=== PATIENT | female | born 1990 | race American Indian/Alaskan Native ===

== ENCOUNTER 2018-03-12 17:17 | Outpatient (CLI) | payer OTHER, MEDICAID ==
[2018-03-14 06:20] VITALS: BP 142/77
== END 2018-03-12 20:00 | disposition home or self-care (01) ==
LOC: TRG 17:17
PROVIDERS: ATTEND Obstetrics & Gynecology
DX: O47.1 False labor at or after 37 completed weeks of gestation (principal); O99.213 Obesity complicating pregnancy, third trimester; E66.01 Morbid (severe) obesity due to excess calories; Z3A.39 39 weeks gestation of pregnancy
CPT/HCPCS: 59025

== ENCOUNTER 2018-03-13 08:13 | Inpatient (IN) | payer OTHER, MEDICAID ==
[2018-03-13] MEDS ORDERED: BRETHINE IVP PRN (09:46)
[2018-03-13] MEDS ORDERED: PHENERGAN PO PRN (09:46)
[2018-03-13] MEDS ORDERED: BRETHINE SUB-Q PRN (09:46)
--- NOTE | 2018-03-13 09:54 | History and Physical Report ---
History of Present Illness Date of examination: 03/13/18 Date of admission: 03/13/18 08:13 Chief complaint: SROM clear fluid @ 0630 History of present illness: Pt is a 27yo BF EDC 03/17/18; EGA 39 3/7 weeks presents to L&D complaining of SROM clear fluid @ 0630 followed by irregular contractions. She received care at [facility] since 12 weeks and co-managed by [facility] for Morbid Obesity. records are available and GBS is Positive. Past History Past Medical History: other (Morbid Obesity) Past Surgical History: no surgical history [place] History: abnormal PAP smear, chlamydia, gonorrhea Family/Genetic History: diabetes, hypertension, cancer Social history: no significant social history, single - Obstetrical History Expected Date of Delivery: 03/17/18 Actual Gestation: 39 Week(s) 3 Day(s) : 2 Medications and Allergies Allergies Allergy/AdvReac Type Severity Reaction Status Date / Time No Known Allergies Allergy Verified 03/13/18 09:58 Home Medications Medication Instructions Recorded Confirmed Last Taken Type Ferrous Sulfate [Feosol 325 MG tab] 2 tab PO BID 03/12/18 03/12/18 1 Day Ago History ~03/11/18 Review of Systems All systems: negative - Vital Signs Vital signs: Vital Signs Pulse BP 81 130/58 03/13/18 08:47 03/13/18 08:47 Temp Pulse Resp BP Pulse Ox 81 130/58 03/13/18 08:47 03/13/18 08:47 - Physical Exam Breasts: Positive: deferred Cardiovascular: Regular rate Lungs: Positive: Clear to auscultation Abdomen: Positive: normal appearance Genitourinary (Female): Positive: normal external genitalia Uterus: Positive: enlarged Extremities: Positive: normal - Obstetrical FHR: category 1 Uterine Contraction Monitor Mode: External Cervical Dilatation: 2 (per nurse) Cervical Effacement Percentage: 50 (per nurse) station: -3 Uterine Contraction Pattern: Irregular Uterine Tone Measurement Phase: Contraction Uterine Contraction Intensity: Mild Results Result Diagrams: 03/13/18 10:19 All other labs normal. Assessment and Plan - Patient Problems (1) 39 weeks gestation of Onset Date: 03/13/18 Current Visit: Yes Status: Acute Plan to address problem: A: IUP @ 39 3/7 weeks in labor MO +GBS P: Admit to L&D for pitocin augmentation of labor IV Ampicillin (2) Morbid (severe) obesity due to excess calories Onset Date: 03/13/18 Current Visit: Yes Status: Acute (3) GBS (group B streptococcus) infection Onset Date: 03/13/18 Current Visit: Yes Status: Acute
[2018-03-13] MEDS ORDERED: POLYCILLIN/NS 2 GM/100 ML 2 GM/100 ML BAG IV NR (10:00)
[2018-03-13] MEDS ORDERED: PITOCin/NS 20 UNIT/1000ML DRIP 20 UNITS/1,000 ML BAG IV SCH (10:00)
[2018-03-13] MEDS ORDERED: SUBLIMAZE IV PRN (10:00)
[2018-03-13] MEDS ORDERED: ZOFRAN IV PRN (10:00)
[2018-03-13] MEDS ORDERED: MINERAL OIL PO PRN (10:00)
[2018-03-13] MEDS ORDERED: XYLOCAINE 2% INFILTRATI NR (10:00)
[2018-03-13] MEDS: LACTATED RINGERS 1,000 ML IV SCH ×2 (10:15→18:21)
[2018-03-13 11:06] LABS: Hemoglobin 9.9 gm/dl (10.1-14.3); Mean Corpuscular HGB Conc 32 % (30-34); Mean Corpuscular Volume 76 fl (79-97); Platelet Count 139 K/mm3 (140-440); Red Blood Count 4.09 M/mm3 (3.65-5.03); Red Cell Distribution Width 17.4 % (13.2-15.2)
[2018-03-13 11:13] LABS: Mean Corpuscular Hemoglobin 24 pg (28-32)
[2018-03-13] MEDS ORDERED: PITOCin/NS 30 UNIT/500ML 30 UNITS/500 ML BAG IV SCH (12:00)
[2018-03-13] MEDS: PITOCin/NS 30 UNIT/500ML 30 UNITS/500 ML BAG IV SCH ×2 (12:34→18:21)
[2018-03-13] MEDS: AMPICILLIN/NS 1 GM/50 ML 1 GM/50 ML BAG IV SCH ×3 (14:19→23:34)
[2018-03-13] MEDS: STADOL IV PRN ×2 (18:14→20:32)
[2018-03-13] MEDS ORDERED: NUBAIN IV PRN (22:40)
[2018-03-13] MEDS ORDERED: BENADRYL IV PRN (22:40)
[2018-03-13] MEDS ORDERED: fentaNYL-BUPIV 2 MCG/ML-0.125% 200 MCG/100 ML BAG EPIDURAL SCH (23:00)
[2018-03-14] MEDS: LACTATED RINGERS 1,000 ML IV SCH (00:12)
[2018-03-14] MEDS ORDERED: XYLOCAINE 2%/ EPI 1:200,000 INFILTRATI ONE (02:09)
[2018-03-14] MEDS: AMPICILLIN/NS 1 GM/50 ML 1 GM/50 ML BAG IV SCH (02:31)
[2018-03-14] MEDS: STADOL IV PRN (02:42)
[2018-03-14] MEDS ORDERED: METHERGINE IM ONE (03:44)
--- NOTE | 2018-03-14 03:49 | Procedure Note ---
OB Delivery Note - Delivery Date of Delivery: 03/14/18 Surgeon: DAVE GENAO Estimated blood loss: 300cc - Vaginal Delivery presentation: vertex Delivery position: OP Intrapartum events: none Delivery induction: oxytocin Delivery augmentation: rupture of membranes, pitocin Delivery monitor: internal FHT, internal uterine Route of delivery: Delivery placenta: spontaneous Delivery cord: 3 umbilical vessels Episiotomy: none Delivery laceration: none Anesthesia: epidural Delivery comments: Infant delivered OA and placed on Mom's chest for [id number] bonding and delayed cord clamping, cut by Dad - A at 1 minute: 8 at 5 minutes: 9 Gender: Female (3048gms)
[2018-03-14] MEDS ORDERED: ZOFRAN IV PRN (03:52)
[2018-03-14] MEDS ORDERED: TYLENOL PO PRN (03:52)
[2018-03-14] MEDS ORDERED: NORCO 5/325 PO PRN (03:52)
[2018-03-14] MEDS ORDERED: PHENERGAN PO PRN (03:52)
[2018-03-14] MEDS ORDERED: PHENERGAN PR PRN (03:52)
[2018-03-14] MEDS ORDERED: TUCKS PAD TP PRN (03:52)
[2018-03-14] MEDS ORDERED: DULCOLAX PR PRN (03:52)
[2018-03-14] MEDS ORDERED: BENADRYL PO PRN (03:52)
[2018-03-14] MEDS ORDERED: MILK OF MAGNESIA PO PRN (03:52)
[2018-03-14] MEDS ORDERED: LANSINOH TP PRN (03:52)
[2018-03-14] MEDS ORDERED: SODIUM CHLORIDE FLUSH SYRINGE 10 ML IV NR (04:00)
[2018-03-14] MEDS ORDERED: PITOCin/NS 20 UNIT/1000ML DRIP 20 UNITS/1,000 ML BAG IV SCH (04:00)
[2018-03-14] MEDS ORDERED: MOTRIN PO SCH (06:00)
[2018-03-14] MEDS ORDERED: PRENATAL VITAMIN PO SCH (10:00)
[2018-03-14] MEDS: FEOSOL PO SCH ×2 (10:42→21:25)
[2018-03-14] MEDS: COLACE PO SCH ×2 (10:42→21:25)
[2018-03-14 14:56] LABS: Hematocrit 29.9 % (30.3-42.9); Hemoglobin 9.8 gm/dl (10.1-14.3)
[2018-03-15] MEDS ORDERED: BOOSTRIX IM ONE (06:00)
[2018-03-15] MEDS ORDERED: M-M-R II VACCINE SUB-Q ONE (06:00)
--- NOTE | 2018-03-15 08:50 | Progress Note ---
Assessment and Plan - Patient Problems (1) 39 weeks gestation of Onset Date: 03/13/18 Current Visit: Yes Status: Resolved (2) Morbid (severe) obesity due to excess calories Onset Date: 03/13/18 Current Visit: Yes Status: Chronic (3) GBS (group B streptococcus) infection Onset Date: 03/13/18 Current Visit: Yes Status: Resolved (4) (normal spontaneous vaginal delivery) Onset Date: 03/15/18 Current Visit: Yes Status: Resolved Plan to address problem: A: S/P - PPD #1 Doing well Asymptomatic anemia - stable P: May go home today. Subjective - Subjective Date of service: 03/15/18 Principal diagnosis: s/p - PPD #1 Interval history: Pt is feeling well without complaints. Bleeding improved. Patient reports: appetite normal, voiding normally, pain well controlled, flatus , ambulating normally, no dizzy ambulation, no nauseated : doing well, bottle feeding Objective - Vital Signs Latest vital signs: Vital Signs Temp Pulse Resp BP 03/15/18 00:00 16 03/14/18 23:30 98.7 F 66 18 103/74 03/14/18 19:30 98.6 F 74 18 101/69 03/14/18 15:31 98.9 F 98 H 18 149/79 03/14/18 08:58 97.8 F 91 H 18 143/63 - Exam Breasts: Present: deferred Cardiovascular: Present: Regular rate Lungs: Present: Clear to auscultation Abdomen: Present: normal appearance, soft Uterus: Present: normal, firm, fundal height below umbilicus Extremities: Present: normal - Labs Labs: Abnormal lab results 03/14/18 Range/Units 14:22 Hgb 9.8 L (10.1-14.3) gm/dl Hct 29.9 L (30.3-42.9) % Laboratory Tests 03/13/18 03/13/18 03/13/18 10:19 10:19 10:19 WBC 8.4 RBC 4.09 Hgb 9.9 L Hct 31.0 MCV 76 L MCH 24 L MCHC 32 RDW 17.4 H Plt Count 139 L RPR Nonreactive Blood Type B POSITIVE Antibody Screen Negative 03/14/18 14:22 WBC RBC Hgb 9.8 L Hct 29.9 L MCV MCH MCHC RDW Plt Count RPR Blood Type Antibody Screen
[2018-03-15 08:53] VITALS: BP 120/65
--- NOTE | 2018-03-15 09:42 | Discharge Summary ---
Providers - Providers Date of Admission: 03/13/18 08:13 Date of discharge: 03/15/18 Attending physician: DAVE GENAO Primary care physician: DAVE GENAO Hospitalization Reason for admission: induction of labor, rupture of membranes, IUP at term Delivery: Episiotomy: none Laceration: none Other procedures: none complications: none Discharge diagnosis: IUP at term delivered baby: female Hospital course: Unremarkable. Condition at discharge: Good Disposition: DC-01 TO HOME OR SELFCARE - Discharge Diagnoses (1) 39 weeks gestation of Status: Resolved (2) Morbid (severe) obesity due to excess calories Status: Chronic (3) GBS (group B streptococcus) infection Status: Resolved (4) (normal spontaneous vaginal delivery) Status: Resolved Plan - Discharge Medications Prescriptions: Ferrous Sulfate [Feosol 325 MG tab] 325 mg PO BID #60 tablet Ibuprofen [Motrin 600 MG tab] 600 mg PO Q6H #30 tablet Vit-Fe Fumar-FA [ Vitamin] 1 each PO QDAY #30 tablet - Provider Discharge Summary Activity: routine, no sex for 6 weeks, no heavy lifting 4 weeks, no strenuous exercise Diet: routine Instructions: routine Additional instructions: [] Smoking cessation referral if applicable(refer to patient education folder for contact #) [] Refer to [facility]'s [facility] Booklet Call your doctor immediately for: * Fever > 100.5 * Heavy vaginal bleeding ( >1 pad per hour) * Severe persistent headache * Shortness of breath * Reddened, hot, painful area to leg or breast * Drainage or odor from incision. * Keep incision clean and dry at all times and follow doctor's instructions regarding bathing/showering - Follow up plan Follow up: DAVE GENAO MD [Primary Care Provider] - 6 Weeks PREETHI OGDEN CNM [Advanced Practice Nurse] - 6 Weeks
== END 2018-03-15 15:55 | disposition home or self-care (01) | DRG 775 ==
LOC: LD 08:13 → OB 03-14 08:01
PROVIDERS: ADMIT Obstetrics & Gynecology; ATTEND Obstetrics & Gynecology
PROC: 10E0XZZ Delivery of Products of Conception, External Approach (ICD-10-PCS; principal; 2018-03-14)
PROC: 3E0R3BZ Introduction of Anesthetic Agent into Spinal Canal, Percutaneous Approach (ICD-10-PCS; 2018-03-14)
PROC: 00HU33Z Insertion of Infusion Device into Spinal Canal, Percutaneous Approach (ICD-10-PCS; 2018-03-14)
PROC: 3E0234Z Introduction of Serum, Toxoid and Vaccine into Muscle, Percutaneous Approach (ICD-10-PCS; 2018-03-15)
DX: O99.824 Streptococcus B carrier state complicating childbirth (principal); Z3A.39 39 weeks gestation of pregnancy; Z37.0 Single live birth; O99.214 Obesity complicating childbirth; E66.01 Morbid (severe) obesity due to excess calories; Z23 Encounter for immunization; Z83.3 Family history of diabetes mellitus; Z82.49 Family history of ischemic heart disease and other diseases of the circulatory system; Z80.9 Family history of malignant neoplasm, unspecified
CPT/HCPCS: 36415; 85014; 85018; 85027; 86592; 86850; 86900; 86901; 90707; 99211; G0463; J0290; J0595; J2210; J2405; J2590; J3010; J7120